=== PATIENT | male | born 1965 | race Caucasian/White ===

== ENCOUNTER → 2017-11-19 10:56 | Outpatient (CLI) | payer OTHER, SELFPAY ==
--- NOTE | 2017-11-19 | DI.RAD.S_ITS ---
PROCEDURE: XR CHEST 2V INDICATIONS: Other elevated white blood cell count TECHNIQUE: 2 views of the chest were acquired. COMPARISON: ARMAND Ramirez, CHEST 2 VIEW, 10/01/2011, 8:48. FINDINGS: Surgical changes and devices: None. Lungs and pleura: No pleural effusions or pneumothorax. Lungs are clear. Mediastinum: Mediastinal contours are normal. Heart size is normal. Bones and chest wall: No suspicious bony abnormalities. Soft tissues appear unremarkable. IMPRESSION: No pneumonia found, source of current elevated white count is not seen. Dictated by: Alvaro Palacio M.D. on 11/19/2017 at 11:23 Approved by: Alvaro Palacio M.D. on 11/19/2017 at 11:24
== END ==
PROVIDERS: PCP Physician Assistant; Visit Provider Physician Assistant
DX: D72.828 Other elevated white blood cell count (principal)
CPT/HCPCS: 71046